=== PATIENT | female | born 1945 | race Caucasian/White ===

== ENCOUNTER → 2016-07-16 | Outpatient (CLI) | payer OTHER, MEDICARE ==
[2016-07-16 14:08] LABS: THYROID STIMULATING HORMONE 0.19 uIu/ml (0.300-4.500)
== END | disposition home or self-care (01) ==
LOC: C.LAB1850 11:43
PROVIDERS: ATTEND Internal Medicine Endocrinology, Diabetes & Metabolism
DX: E05.90 Thyrotoxicosis, unspecified without thyrotoxic crisis or storm (principal); E11.65 Type 2 diabetes mellitus with hyperglycemia; E05.00 Thyrotoxicosis with diffuse goiter without thyrotoxic crisis or storm